=== PATIENT | female | born 1995 | race Caucasian/White ===

== ENCOUNTER 2017-08-31 20:55 | Observation (INO) | payer MEDICARE, MEDICAID, SELFPAY ==
[2017-08-31 20:57] VITALS: BP 144/94; PULSE 114; RESP 18; TEMP 36.5; O2SAT 100; BMI 39.1
--- NOTE | 2017-08-31 21:14 | CT_ITS ---
STUDY: CT BRAIN WITHOUT CONTRAST REASON FOR EXAM: Female, 21 years old. Seizure. RADIATION DOSAGE (If Supplied By Facility): CTDIvol = ( 44.99 ) mGy, DLP = ( 745.49 ) mGycm TECHNIQUE: Transaxial CT imaging of the brain was performed without administration of intravenous contrast material. Individualized dose optimization techniques were used for this CT. COMPARISON: None. FINDINGS: There is no acute bleed or infarct. There are normal white matter tracts. The ventricles are normal in configuration. There is no hydrocephalus. The visualized paranasal sinuses are clear. The mastoid air cells are well aerated. There is no skull fracture. CT/Brain/Head without Contrast IMPRESSION: No acute intracranial abnormality. Electronically Signed: Bob Delatorre, at 21:55 EDT Tel , Service support ,
--- NOTE | 2017-08-31 21:14 | EKG12_ITS ---
Test Reason : SEIZURES Blood Pressure : / mmHG Vent. Rate : 111 BPM Atrial Rate : 111 BPM P-R Int : 144 ms QRS Dur : 088 ms QT Int : 352 ms P-R-T Axes : 031 -08 022 degrees QTc Int : 478 ms Sinus tachycardia Low voltage QRS Nonspecific T wave abnormality Abnormal ECG Confirmed by DAISY AGUIRRE, ORVILLE ([id number]), multimedia editor ISABELLA CEBALLOS ([id number]) on 09/06/2017 3:13:10 PM Referred By: DEREK Confirmed By:ORVILLE VILLA MD
--- NOTE | 2017-08-31 21:16 | NURSING ---
SEIZURE TYPE ACTIVITY NOTED WITH STARRING AND UNRESPONSIVENESS ALONG WITH COUGHING. DR. REED NOTED THIS WHILE HE WAS IN THE ROOM.
[2017-08-31 21:17] VITALS: BP 127/79; PULSE 103; RESP 18; O2SAT 95
--- NOTE | 2017-08-31 21:19 | ED.DCSUM_ITS ---
- ER Visit Summary Date of Service: 08/31/17 Chief Complaint: Seizure History of Present Illness: The patient is a 21 F autism and asthma. The last 2 weeks patient's had more frequent and increasing episodes of where she stares off the distance does not respond and they resolve. Consistent with absence seizure's. No recent head trauma. No history of seizure disorder in this patient or in family members. Physical Examination: Well-appearing young female. Vital signs are stable afebrile. Also exam percent room air no signs of hypoxia. H EENT exam pupils round reactive light. Extra motions intact. No facial droop. Neck nontender no lymphadenopathy. Lungs clear to auscultation bilaterally. Heart regular rhythm rate about 110-115 no murmur. Abdomen soft nontender. Moving all 4 extremities. Neurovascular intact. Neurologically patient intermittently during my exam does go into what appears to be absence seizure's. She will stare off in the distance or her eyes will roll up in her head. There is no tonic-clonic activity. During these events she is nonresponsive. She is breathing. Her vital signs and pulse remained stable. They last 10-20 seconds and then typically resolve. Test Results: See normal. BMP normal. EKG sinus tach rate 111 no acute abnormality. The brain without contrast read by the radiologist and reviewed by me shows no acute abnormality. Emergency Department Course and Treatment: She appears to have new onset seizure disorder. Appears to be absence seizure's. She will obtain CT of her brain for screening labs. Treatment Plan: He was treated with IV Ativan for seizure activity is seen to improve and potentially resolve currently. I spoke to the hospitalist and neurologist and we will admit her for further evaluation and neurologic testing. Disposition: Admission Impression: New onset seizure disorder History of autism This note was generated with [employer] dictation software. It may contain incorrect words, spelling, and punctuation that were not noted in review of the chart prior to signing ED Disposition - Plan for ED Patient: Chief Complaint: Seizure Referrals: Nabil Fontaine MD [Primary Care Provider] -
[2017-08-31] MEDS: LORazepam 2 MG/ML Syringe 1 MG IV (21:30)
[2017-08-31 21:49] LABS: Absolute Lymphocyte Count 3.02 X10^3/ul (0.83-4.51); Absolute Neutrophil Count 3.7 X10^3/uL (2.0-7.7); Basophil# 0.01 X10^3/uL; Basophil% 0.1 % (0-1); Eosinophil# 0.15 X10^3/uL; Eosinophils% 2.1 % (0-5); Hematocrit 43.3 % (37-47); Hemoglobin 14.8 g/dl (12.0-15.0); Lymphocyte # 3.02 X10^3/ul (4.0); Lymphocyte % 41.3 % (19-41); Mean Corp Hgb Conc 34.2 g/gl (32-36); Mean Corpuscular Hgb 30.4 pg (27.0-32.0); Mean Corpuscular Volume 88.9 fL (81-99); Mean Platelet Vol. 9.3 fl (6.2-12.0); Monocyte# 0.47 X10^3/uL; Monocyte% 6.4 % (0-10); Neutrophil # 3.65 X10^3/uL (2.7-7.7); POSITIVE COUNT NO; POSITIVE DIFFERENTIAL NO; POSITIVE MORPHOLOGY NO; Platelet Count 228 K/mm3 (150-450); RBC Distribution Width CV 13.1 % (11.6-14.6); RBC Distribution Width SD 42.8 fl (35.1-43.9); Red Blood Count 4.87 M/mm3 (4.2-5.4); White Blood Count 7.3 K/mm3 (4.4-11.0)
[2017-08-31 22:04] LABS: Anion Gap 7 (5-15); BUN 13 mg/dL (7-18); BUN/Creat Ratio 15.7 RATIO (10-20); Calcium,Total 8.3 mg/dL (8.5-10.1); Chloride 108 mmol/L (98-107); Creatinine, Serum 0.83 mg/dL (0.55-1.02); EST Glomerular Filtration Rate 91 mL/min (>60); Est Glom Filt Rate - Afr Amer 111 mL/min (>60); Estimated Creatinine Clearance 103.39 ml/min; Glucose 86 mg/dL (74-106); Potassium 3.7 mmol/L (3.5-5.1); Sodium Level 139 mmol/L (136-145)
[2017-08-31 22:39] VITALS: BP 119/77; PULSE 109; RESP 18; TEMP 36.6; O2SAT 98
--- NOTE | 2017-08-31 22:46 | HP.PCM_ITS ---
Problem List (1) New onset seizure activity Status: Acute History of Present Illness Date of Admission: 08/31/17 Chief Complaint: New onset seizure activity The patient is a 21 year old F was brought to the emergency room at [facility] by her parents due to episodes today where the patient stared off in space and did not respond to verbal stimuli, this was accompanied by her eyes rolling back in her head according to her mother. Patient has autism, review of systems was not able be obtained from the patient due to her autism. When examined in the emergency room, patient had an episode that was witnessed by the emergency room physician. Patient was given IV Ativan in the emergency room by the emergency room physician, workup was obtained which included a CT of the brain which did not show any abnormality and labs which were unremarkable. She will be admitted for new onset seizures believed to be absence seizures, she will be seen in consultation by neurology and have an EEG performed. 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 Lives: With Family Smoking Status: Never smoker Tobacco Use: Non-smoker Alcohol: None Drugs: None - *Family History Maternal History Items: Hypertension Paternal History Items: No pertinent history Review of Systems Comment: Review of systems was unobtainable due to patient's autism VTE Information - Inpt Only VTE Present on Admission: No VTE Mechan Device Prophylaxis: None VTE Pharm Prophylaxis ordered?: No Reason prophylaxis not ordered:: Treatment Not Indicated - low risk for VTE Patient Problems: Active and Suspected Problems New onset seizure activity (Acute) - Physical Exam General: Alert, No apparent distress, Well developed, Well nourished HEENT: Atraumatic, PERRLA, EOMI, Normocephalic Oral: Moist Mucosa Neck: Supple, No JVD, Negative Carotid Bruits, No Nuchal Rigidity, Trachea Midline, Thyroid Normal Size and Texture Lungs: Clear to auscultation, Normal air movement, No rhonchi, No wheeze, No rales Cardiovascular: Regular rate, Regular Rhythm, Normal S1, Normal S2, No murmurs, No Ectopic Activity, PMI Normal, No rub noted, No Gallop Abdomen: Bowel Sounds Present, Soft, Non Tender, Non-Distended, Obese, No hernias noted Extremities: No clubbing, No cyanosis, No edema, Capillary Refill Less than 3 Seconds Skin: No rashes, No breakdown Musculoskeletal: No Tenderness to Palpation of Joints or Extremities Neurological: Cranial nerves II-XII grossly intact, Neuro grossly intact Psych/Mental Status: Flat Affect, - - Patient does not reply when spoken to at times, she is alert Vital Signs Temp Pulse Resp BP Pulse Ox 97.9 F 109 H 18 119/77 98 08/31/17 22:39 08/31/17 22:39 08/31/17 22:39 08/31/17 22:39 08/31/17 22:39 Oxygen Delivery Method Room Air Weight: 113.398 kg Body Mass Index (BMI) 39.1 Laboratory Tests Past 24 Hrs 08/31/17 08/31/17 21:28 21:28 WBC 7.3 RBC 4.87 Hgb 14.8 Hct 43.3 MCV 88.9 MCH 30.4 MCHC 34.2 RDW 13.1 RDW Differential 42.8 Plt Count 228 MPV 9.3 Immature Gran % (Auto) 0.100 Neut % (Auto) 50.0 Lymph % (Auto) 41.3 H Frederick % (Auto) 6.4 Eos % (Auto) 2.1 Baso % (Auto) 0.1 Absolute Neuts (auto) 3.7 Absolute Lymphs (auto) 3.02 Total Counted Not Reportable Sodium 139 Potassium 3.7 Chloride 108 H Carbon Dioxide 24.0 Anion Gap 7 BUN 13 Creatinine 0.83 Estim Creat Clear Calc 103.39 Est GFR (MDRD) Af Amer 111 Est GFR (MDRD) Non-Af 91 BUN/Creatinine Ratio 15.7 Glucose 86 Calcium 8.3 L Assessment/Plan Active and Suspected Problems New onset seizure activity (Acute) #1 new onset seizure activity-probably absence seizures-patient will be admitted to PCU, neurology will see the patient, she will have an EEG performed #2 autism-complicates care #3 history of asthma Code Visit Inpatient E&M: 10726 Init Hosp L3
[2017-08-31 23:48] VITALS: BP 140/86; PULSE 115; RESP 16; TEMP 36.7; O2SAT 100; BMI 39.2
[2017-08-31 23:50] VITALS: BP 115/64
[2017-09-01] VITALS (7 sets, daily range): BP systolic 128–137; BP diastolic 61–84; PULSE 100–115; RESP 16–20; TEMP 36.9; O2SAT 94–95
--- NOTE | 2017-09-01 07:46 | PCM.PROGNOTE ---
Patient Problems: Active and Suspected Problems New onset seizure activity (Acute) Subjective: Chief complaint: Follow-up after admission for new onset seizure. Patient seen and examined. No acute events overnight. Patient is autistic and not able to provide any history. Mother was at the bedside and she stated that she had no more seizure since admission. Her vital signs are stable. - Physical Exam General: Alert, Cooperative, No apparent distress HEENT: Atraumatic, PERRLA, EOMI Oral: Moist Mucosa, No Gingival or Mucosal Lesions/ Ulcerations Neck: Supple, No JVD, Negative Carotid Bruits, Trachea Midline, Thyroid Normal Size and Texture Lungs: Clear to auscultation, No rhonchi, No wheeze, No rales, Diminished Cardiovascular: Regular rate, Regular Rhythm, Normal S1, Normal S2, PMI Normal Abdomen: Bowel Sounds Present, Soft, Non Tender, Non-Distended, No Hepato-splenomegaly Extremities: No clubbing, No cyanosis, No edema Skin: No rashes, No breakdown Neurological: Cranial nerves II-XII grossly intact, Neuro grossly intact, Motor Exam 5/5 strength throughout Psych/Mental Status: Normal Affect Vital Signs Temp Pulse Resp BP Pulse Ox 98.4 F 111 H 16 134/61 H 94 09/01/17 05:40 09/01/17 06:59 09/01/17 05:40 09/01/17 05:40 09/01/17 05:40 Oxygen Delivery Method Room Air Weight: 257 lb 15.053 oz Intake and Output for Last 24 Hours 08/30/17 08/31/17 09/01/17 23:59 23:59 23:59 Intake Total 0 / 0 Output Total 0 / 0 Balance 0 / 0 Medical Necessity - Tobacco Use Smoking Status: Never smoker Tobacco Use: Non-smoker Assessment/Plan Active and Suspected Problems New onset seizure activity (Acute) This is a 21 years old female patient presented to the medicine because of seizure and she was admitted for evaluation. #1 new onset seizure: Patient never had a history of seizure, no family history of seizure. Apparently, it was an absence seizure. CT scan brain without acute findings. Routine blood work was unremarkable. Vital signs are stable. At this time, she is not on any seizure medication. EEG ordered, neurology consulted. #2 autism: Continue home medications. #3 asthma: Stable, maintaining pulse ox on room air. #4 DVT prophylaxis: Low risk patient, no prophylaxis indicated. This note was generated with [employer] software. It may contain incorrect words, spelling, and punctuation that were not noted in checking the note before signing.
--- NOTE | 2017-09-01 07:51 | PN_ITS ---
Patient Problems: Active and Suspected Problems New onset seizure activity (Acute) Subjective: Chief complaint: Follow-up after admission for new onset seizure. Patient seen and examined. No acute events overnight. Patient is autistic and not able to provide any history. Mother was at the bedside and she stated that she had no more seizure since admission. Her vital signs are stable. - Physical Exam General: Alert, Cooperative, No apparent distress HEENT: Atraumatic, PERRLA, EOMI Oral: Moist Mucosa, No Gingival or Mucosal Lesions/ Ulcerations Neck: Supple, No JVD, Negative Carotid Bruits, Trachea Midline, Thyroid Normal Size and Texture Lungs: Clear to auscultation, No rhonchi, No wheeze, No rales, Diminished Cardiovascular: Regular rate, Regular Rhythm, Normal S1, Normal S2, PMI Normal Abdomen: Bowel Sounds Present, Soft, Non Tender, Non-Distended, No Hepato- splenomegaly Extremities: No clubbing, No cyanosis, No edema Skin: No rashes, No breakdown Neurological: Cranial nerves II-XII grossly intact, Neuro grossly intact, Motor Exam 5/5 strength throughout Psych/Mental Status: Normal Affect Vital Signs Temp Pulse Resp BP Pulse Ox 98.4 F 111 H 16 134/61 H 94 09/01/17 05:40 09/01/17 06:59 09/01/17 05:40 09/01/17 05:40 09/01/17 05:40 Oxygen Delivery Method Room Air Weight: 257 lb 15.053 oz Intake and Output for Last 24 Hours 08/30/17 08/31/17 09/01/17 23:59 23:59 23:59 Intake Total 0 / 0 Output Total 0 / 0 Balance 0 / 0 Medical Necessity - Tobacco Use Smoking Status: Never smoker Tobacco Use: Non-smoker Assessment/Plan Active and Suspected Problems New onset seizure activity (Acute) This is a 21 years old female patient presented to the medicine because of seizure and she was admitted for evaluation. #1 new onset seizure: Patient never had a history of seizure, no family history of seizure. Apparently, it was an absence seizure. CT scan brain without acute findings. Routine blood work was unremarkable. Vital signs are stable. At this time, she is not on any seizure medication. EEG ordered, neurology consulted. #2 autism: Continue home medications. #3 asthma: Stable, maintaining pulse ox on room air. #4 DVT prophylaxis: Low risk patient, no prophylaxis indicated. This note was generated with [employer] software. It may contain incorrect words, spelling, and punctuation that were not noted in checking the note before signing.
[2017-09-01 11:22] LABS: CPK Total, Creatine Kinase 109 U/L (26-192)
--- NOTE | 2017-09-01 11:34 | CASEMGMT ---
CM Initial Assessment: Patient's mother, Starr Roman, is present for interview questions. Home: Patient lives in a 2 story home with her mother, father, brother and aunt. HHS/Aides: No. However, patient does receive assistance from [place] one day a week. Per mother, this service comes into the home to have one-on-one time with the patient and plays games, etc. DME: Has nebulizer that she uses as needed. Providers: PCP - Nabil Fontaine . Patient's mother states that Windy sees Dr. Bhatti at the counseling center for her meds. Pharmacy: [facility] in [place]. Adv. Directives: None. Patient's mother denies interest in assistance/information at this time. Financial: Patient's mother denies any financial concerns with healthcare needs. DC Plan: Home, with support from family.
--- NOTE | 2017-09-01 11:39 | PCM.DC ---
- Discharge Diagnoses Current Active Problems: Current Active and Chronic Problems New onset seizure activity (Acute) You will use the following diet at home:: Regular Your food should be the consistency of: Regular Discharge Activity: Return to Normal Activity Weight Bearing Status: Weight bearing as tolerated Call your doctor if you observe: Fever of 101 or Higher, Shortness of breath, Dizziness, Fainting spells, Chest pain, Increased palpitations (irregular heartbeat), Uncontrolled pain Additional Instructions: Dose of Strattera decreased down to 25 mg p.o. daily. Allergies/Adverse Reactions: Allergies No Known Allergies Allergy (Verified 08/31/17 20:56) Medications to take at Discharge Lisdexamfetamine Dimesylate [Vyvanse] 70 mg PO DAILY 08/04/14 Melatonin 5 mg PO QHS 08/04/14 l-Norgest/E.estradiol-E.estrad [Seasonique 0.15-0.03-0.01 Tab] 1 each PO DAILY 08/04/14 Atomoxetine HCl [Strattera] 25 mg PO DAILY #0 09/01/17 Bupropion HCl [Bupropion Xl] 300 mg DAILY 09/01/17 Cholecalciferol (Vitamin D3) [Vitamin D3] 1,000 unit PO DAILY 09/01/17 Primary Care Physician: Nabil Fontaine MD [Primary Care Provider] - Please follow up with your Primary Care Physician in: 1-2 week.
--- NOTE | 2017-09-01 12:11 | PCM.CONS.GEN ---
Reason for Consult Date of Consultation: 09/01/17 Reason for Consultation: spells History of Present Illness: The patient is a 21 year old F with history of autism, who 1 month ago increased her dose of Strattera. Since then she has had some intermittent spells and then yesterday had multiple spells causing her to present to the emergency department. Her mom describes eyes rolling back, clenching fists, the spells have resolved spontaneously with no treatment although she did get 1 dose of Ativan in the emergency department. Been no incontinence or tongue biting. The patient is normal today. There have been no other medication changes other than the Strattera. She sees a physician at the [facility] for this and has an appointment next week. Mom denies any new evidence of mood disturbance or stress at home. 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 Lives: With Family Smoking Status: Never smoker Tobacco Use: Non-smoker Alcohol: None Drugs: None - *Family History Maternal History Items: Hypertension Paternal History Items: No pertinent history Review of Systems Constitutional: Denies: Chills, Fever, Weight Change HEENT: Denies: Head Aches, Sinus Congestion, Sinus Drainage Cardiovascular: Denies: Chest Pain, Palpitations Respiratory: Denies: Cough, Shortness of breath at rest, Sputum production Gastrointestinal: Denies: Abdominal Pain, Nausea, Vomiting Genitourinary: Denies: Dysuria Musculoskeletal: Denies: Joint Pain, Joint Tenderness Skin: Denies: Rash, Wounds Neurological: Denies: Numbness, Tingling, Focal weakness Psychiatric: Denies: Anxiety, Depression, Homicidal Ideations, Suicidal Ideations Hematologic/ Lymphatic: Denies: Easy Bruising, Easy Bleeding Patient Problems: Active and Suspected Problems New onset seizure activity (Acute) - Physical Exam General: Alert, Oriented x3, Cooperative HEENT: Atraumatic, PERRLA, EOMI, Normocephalic Neck: Supple, No JVD, Negative Carotid Bruits Lungs: Clear to auscultation, Normal air movement Cardiovascular: Regular rate, No murmurs Abdomen: Bowel Sounds Present, Soft, Non Tender Extremities: No edema, Capillary Refill Less than 3 Seconds Skin: No rashes, No breakdown Musculoskeletal: No Tenderness to Palpation of Joints or Extremities Neurological: Cranial nerves II-XII grossly intact Psych/Mental Status: Normal Affect, Appropriate Vital Signs Temp Pulse Resp BP Pulse Ox 36.9 C 113 H 16 128/76 H 95 09/01/17 09:30 09/01/17 11:29 09/01/17 09:30 09/01/17 09:30 09/01/17 09:30 Oxygen Delivery Method Room Air Weight: 117 kg Intake and Output for Last 24 Hours 08/30/17 08/31/17 09/01/17 23:59 23:59 23:59 Intake Total 0 / 0 Output Total 0 / 0 Balance 0 / 0 Laboratory Tests Past 24 Hrs 09/01/17 10:55 Total Creatine Kinase 109 EEG reviewed, normal Assessment/Plan Active and Suspected Problems New onset seizure activity (Acute) Seizures versus nonepileptic spells. Favor nonepileptic spells due to the semiology of the events, no history of seizures in the past and is otherwise healthy female although the increased dose of her Strattera did coincide with the onset of her symptoms proximally 1 month ago. Discussed with mother who agrees to decrease her dose of Strattera back to 25 mg daily which she was tolerating previously and follow-up with her psychiatrist at the counseling center.
--- NOTE | 2017-09-01 12:14 | CON.PCM_ITS ---
Reason for Consult Date of Consultation: 09/01/17 Reason for Consultation: spells History of Present Illness: The patient is a 21 year old F with history of autism, who 1 month ago increased her dose of Strattera. Since then she has had some intermittent spells and then yesterday had multiple spells causing her to present to the emergency department. Her mom describes eyes rolling back, clenching fists, the spells have resolved spontaneously with no treatment although she did get 1 dose of Ativan in the emergency department. Been no incontinence or tongue biting. The patient is normal today. There have been no other medication changes other than the Strattera. She sees a physician at the [facility] for this and has an appointment next week. Mom denies any new evidence of mood disturbance or stress at home. 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 Lives: With Family Smoking Status: Never smoker Tobacco Use: Non-smoker Alcohol: None Drugs: None - *Family History Maternal History Items: Hypertension Paternal History Items: No pertinent history Review of Systems Constitutional: Denies: Chills, Fever, Weight Change HEENT: Denies: Head Aches, Sinus Congestion, Sinus Drainage Cardiovascular: Denies: Chest Pain, Palpitations Respiratory: Denies: Cough, Shortness of breath at rest, Sputum production Gastrointestinal: Denies: Abdominal Pain, Nausea, Vomiting Genitourinary: Denies: Dysuria Musculoskeletal: Denies: Joint Pain, Joint Tenderness Skin: Denies: Rash, Wounds Neurological: Denies: Numbness, Tingling, Focal weakness Psychiatric: Denies: Anxiety, Depression, Homicidal Ideations, Suicidal Ideations Hematologic/ Lymphatic: Denies: Easy Bruising, Easy Bleeding Patient Problems: Active and Suspected Problems New onset seizure activity (Acute) - Physical Exam General: Alert, Oriented x3, Cooperative HEENT: Atraumatic, PERRLA, EOMI, Normocephalic Neck: Supple, No JVD, Negative Carotid Bruits Lungs: Clear to auscultation, Normal air movement Cardiovascular: Regular rate, No murmurs Abdomen: Bowel Sounds Present, Soft, Non Tender Extremities: No edema, Capillary Refill Less than 3 Seconds Skin: No rashes, No breakdown Musculoskeletal: No Tenderness to Palpation of Joints or Extremities Neurological: Cranial nerves II-XII grossly intact Psych/Mental Status: Normal Affect, Appropriate Vital Signs Temp Pulse Resp BP Pulse Ox 36.9 C 113 H 16 128/76 H 95 09/01/17 09:30 09/01/17 11:29 09/01/17 09:30 09/01/17 09:30 09/01/17 09:30 Oxygen Delivery Method Room Air Weight: 117 kg Intake and Output for Last 24 Hours 08/30/17 08/31/17 09/01/17 23:59 23:59 23:59 Intake Total 0 / 0 Output Total 0 / 0 Balance 0 / 0 Laboratory Tests Past 24 Hrs 09/01/17 10:55 Total Creatine Kinase 109 EEG reviewed, normal Assessment/Plan Active and Suspected Problems New onset seizure activity (Acute) Seizures versus nonepileptic spells. Favor nonepileptic spells due to the semiology of the events, no history of seizures in the past and is otherwise healthy female although the increased dose of her Strattera did coincide with the onset of her symptoms proximally 1 month ago. Discussed with mother who agrees to decrease her dose of Strattera back to 25 mg daily which she was tolerating previously and follow-up with her psychiatrist at the counseling center.
--- NOTE | 2017-09-01 12:15 | EEG ---
- Electroencephalogram Date of service 09/01/17 18 channel echoencephalogram was performed with EKG reference leads, photic stimulation and hyperventilation utilizing the International 10-20 electrode placement protocol on this 21-year-old female with multiple spells yesterday. Background activity is 8 Hz symmetrical in the posterior leads which attenuates with eye opening. Hyperventilation is performed for 3 minutes with good effort with no lateralizing Repliform changes and the post hyperventilatory phase was unremarkable. The patient remained awake throughout the recording without epileptiform or lateralizing changes. Photic stimulation generates a normal symmetric driving response in the posterior leads. EKG rhythm strip recording is normal sinus rhythm throughout the recording. Impression: Normal awake electroencephalogram
--- NOTE | 2017-09-01 14:10 | PCM.DC.SUM ---
Discharge Date and Diagnosis Date of Admission: 08/31/17 Date of Discharge: 09/01/17 - Primary Discharge Diagnosis #1 none epileptic spells, versus new onset seizure. In favor of nonepileptic spells. Hospital Course and Treatment Imaging Results: Clinical Impression(s) from Imaging Studies Brain CT 08/31/17 21:14 IMPRESSION: No acute intracranial abnormality. Electronically Signed: Bob Delatorre, at 21:55 EDT Tel , Service support , Dr. Covarrubias, neurology. Procedures: Electroencephalogram Summary of Care Provided: The patient is a 21 year old F admitted because of questionable seizure. The main complaint was that patient has had episodes of staring in the space no response to verbal stimuli and accompanied by back clearing of her eyes. Initially, there was a concern that she may have absence seizure. CT scan brain showed no acute findings. Her routine blood work was unremarkable. Vital signs were stable. EEG performed and was normal without evidence of epileptic foci. Neurology consulted and stated that this could be due to nonepileptic spells or due to behavioral problems. At this time, seizure is less likely. Neurology recommended to decrease the dose of Strattera down to 25 mg p.o. daily. According to her mother, her symptoms started after dose of Strattera increased recently. Patient discharged home in a stable medical condition, dose of Strattera decreased down to 25 mg p.o. daily, there was no indication to start patient on antiseizure medications, continued on her other home medication without any changes, recommended to follow-up with her psychiatrist and PCP in 1-2 weeks. Discharge Activity: Return to Normal Activity Weight Bearing Status: Weight bearing as tolerated Call your doctor if you observe: Fever of 101 or Higher, Shortness of breath, Dizziness, Fainting spells, Chest pain, Increased palpitations (irregular heartbeat), Uncontrolled pain Home Medications: Medications to take at Discharge Lisdexamfetamine Dimesylate [Vyvanse] 70 mg PO DAILY 08/04/14 Melatonin 5 mg PO QHS 08/04/14 l-Norgest/E.estradiol-E.estrad [Seasonique 0.15-0.03-0.01 Tab] 1 each PO DAILY 08/04/14 Atomoxetine HCl [Strattera] 25 mg PO DAILY #0 09/01/17 Bupropion HCl [Bupropion Xl] 300 mg DAILY 09/01/17 Cholecalciferol (Vitamin D3) [Vitamin D3] 1,000 unit PO DAILY 09/01/17 Primary Care Physician: Nabil Fontaine MD [Primary Care Provider] - Please follow up with your Primary Care Physician in: 1-2 week. Disposition: Home Minutes spent on discharge:: 24 Patient Condition:: Stable Medical Necessity - Tobacco Use Smoking Status: Never smoker Tobacco Use: Non-smoker Meaningful Use Info Meaningful Use Diagnoses (Choose all that apply): None applicable Code Visit OBSV E&M: 22113 Observation care discharge
--- NOTE | 2017-09-01 14:15 | DS.PCM_ITS ---
Discharge Date and Diagnosis Date of Admission: 08/31/17 Date of Discharge: 09/01/17 - Primary Discharge Diagnosis #1 none epileptic spells, versus new onset seizure. In favor of nonepileptic spells. Hospital Course and Treatment Imaging Results: Clinical Impression(s) from Imaging Studies Brain CT 08/31/17 21:14 IMPRESSION: No acute intracranial abnormality. Electronically Signed: Bob Delatorre, at 21:55 EDT Tel , Service support , Dr. Covarrubias, neurology. Procedures: Electroencephalogram Summary of Care Provided: The patient is a 21 year old F admitted because of questionable seizure. The main complaint was that patient has had episodes of staring in the space no response to verbal stimuli and accompanied by back clearing of her eyes. Initially, there was a concern that she may have absence seizure. CT scan brain showed no acute findings. Her routine blood work was unremarkable. Vital signs were stable. EEG performed and was normal without evidence of epileptic foci. Neurology consulted and stated that this could be due to nonepileptic spells or due to behavioral problems. At this time, seizure is less likely. Neurology recommended to decrease the dose of Strattera down to 25 mg p.o. daily. According to her mother, her symptoms started after dose of Strattera increased recently. Patient discharged home in a stable medical condition, dose of Strattera decreased down to 25 mg p.o. daily, there was no indication to start patient on antiseizure medications, continued on her other home medication without any changes, recommended to follow-up with her psychiatrist and PCP in 1-2 weeks. Discharge Activity: Return to Normal Activity Weight Bearing Status: Weight bearing as tolerated Call your doctor if you observe: Fever of 101 or Higher, Shortness of breath, Dizziness, Fainting spells, Chest pain, Increased palpitations (irregular heartbeat), Uncontrolled pain Home Medications: Medications to take at Discharge Lisdexamfetamine Dimesylate [Vyvanse] 70 mg PO DAILY 08/04/14 Melatonin 5 mg PO QHS 08/04/14 l-Norgest/E.estradiol-E.estrad [Seasonique 0.15-0.03-0.01 Tab] 1 each PO DAILY 08/04/14 Atomoxetine HCl [Strattera] 25 mg PO DAILY #0 09/01/17 Bupropion HCl [Bupropion Xl] 300 mg DAILY 09/01/17 Cholecalciferol (Vitamin D3) [Vitamin D3] 1,000 unit PO DAILY 09/01/17 Primary Care Physician: Nabil Fontaine MD [Primary Care Provider] - Please follow up with your Primary Care Physician in: 1-2 week. Disposition: Home Minutes spent on discharge:: 24 Patient Condition:: Stable Medical Necessity - Tobacco Use Smoking Status: Never smoker Tobacco Use: Non-smoker Meaningful Use Info Meaningful Use Diagnoses (Choose all that apply): None applicable Code Visit OBSV E&M: 01235 Observation care discharge
== END 2017-09-01 11:40 | disposition home or self-care (01) ==
LOC: ED 22:15 → PCU 23:14
PROVIDERS: Psychiatry & Neurology Neurology; Admitting Provider Internal Medicine; Emergency Provider Emergency Medicine; Family Provider Family Medicine; PCP Family Medicine; Visit Provider Hospitalist
DX: R56.9 Unspecified convulsions (principal); F84.0 Autistic disorder; J45.909 Unspecified asthma, uncomplicated
CPT/HCPCS: 36415; 70450; 80048; 82550; 85025; 93005; 95819; 96374; 99218; 99284; A4216; G0378

== ENCOUNTER → 2019-01-09 07:27 | Outpatient (CLI) | payer MEDICARE, MEDICAID, SELFPAY ==
[2019-01-09 10:42] LABS: Absolute Lymphocyte Count 1.74 X10^3/uL (0.83-4.51); Absolute Neutrophil Count 3.7 X10^3/uL (2.0-7.7); Basophil# 0.01 X10^3/uL; Basophil% 0.2 % (0-1); Eosinophil# 0.13 X10^3/uL; Eosinophils% 2.2 % (0-5); Hematocrit 46.3 % (37-47); Hemoglobin 15.6 g/dL (12.0-15.0); Lymphocyte # 1.74 X10^3/ul (4.0); Lymphocyte % 29.2 % (19-41); Mean Corp Hgb Conc 33.7 g/dL (32-36); Mean Platelet Vol. 9.8 fl (6.2-12.0); Monocyte# 0.42 X10^3/uL; NRBC Flagged by Analyzer 0 % (0-5); Neutrophil # 3.65 X10^3/uL (2.7-7.7); Neutrophil % 61.2 % (47-70); Platelet Count 237 K/mm3 (150-450); RBC Distribution Width CV 12.8 % (11.6-14.6); RBC Distribution Width SD 41.7 fl (35.1-43.9)
[2019-01-09 11:05] LABS: ALB/GLOB Ratio 0.8 RATIO (0.9-2.4); AST(SGOT) 18 U/L (15-37); Alanine Aminotransfer ALT/SGPT 33 U/L (13-56); Albumin, Serum 3.2 g/dL (3.2-5.0); Alkaline Phosphatase 89 U/L (45-117); Anion Gap 9 (5-15); BUN 14 mg/dL (7-18); BUN/Creat Ratio 14.6 RATIO (10-20); Calcium,Total 8.7 mg/dL (8.5-10.1); Chloride 111 mmol/L (98-107); Cholesterol 161 mg/dL (200); Creatinine, Serum 0.96 mg/dL (0.55-1.02); EST Glomerular Filtration Rate 76 mL/min (>60); Est Glom Filt Rate - Afr Amer 92 mL/min (>60); Globulin 3.9 g/dL (2.2-4.2); Glucose 78 mg/dL (74-106); High Density Lipoprotein 47 mg/dL; Protein, Total 7.1 g/dL (6.4-8.2); Sodium Level 142 mmol/L (136-145); T4 Free Direct 1.01 ng/dL (0.76-1.46); Thyroid Stim Hormone (TSH) 2.42 uIU/mL (0.358-3.74); Triglycerides 108 mg/dL; Very Low Density Lipoprotein 22 mg/dL (5-40)
== END ==
PROVIDERS: Family Provider Family Medicine; PCP Family Medicine; Referring Provider Family Medicine; Visit Provider Family Medicine
DX: R53.83 Other fatigue (principal); E66.9 Obesity, unspecified; Z51.81 Encounter for therapeutic drug level monitoring; Z83.3 Family history of diabetes mellitus
CPT/HCPCS: 36415; 80053; 80061; 84439; 84443; 85025

== ENCOUNTER → 2019-07-24 16:24 | Outpatient (CLI) | payer MEDICARE, MEDICAID, SELFPAY ==
[2019-04-05 13:41] VITALS: BMI 38.0
--- NOTE | 2019-07-24 16:30 | RAD_ITS ---
STUDY: X-RAY CHEST REASON FOR EXAM: Female, 23 years old. COUGH TECHNIQUE: Frontal and lateral views of the chest. COMPARISON: 08/04/2014. FINDINGS: The lungs are clear and expanded. There is no demonstrated pleural abnormality. Normal size heart. Normal mediastinum and yoseph. Normal visualized pulmonary arteries. Normal visualized aortic arch and descending thoracic aorta. Normal visualized thoracic spine. Normal visualized ribs, clavicles, and shoulders. There is no demonstrated abnormality of the visualized soft tissue structures of the upper abdomen. RAD/Chest PA and Lateral IMPRESSION: Normal x-ray examination of the chest. Electronically Signed: Rosales Jones MD at 20:12 EDT , Service support ,
== END ==
PROVIDERS: PCP Family Medicine; Referring Provider Family Medicine; Visit Provider Family Medicine
DX: J45.901 Unspecified asthma with (acute) exacerbation (principal)
CPT/HCPCS: 71046

== ENCOUNTER → 2019-12-11 | Outpatient (CLI) | payer MEDICARE, MEDICAID, SELFPAY ==
[2019-10-31 10:31] VITALS: BMI 39.6
== END | disposition home or self-care (01) ==
LOC: LABSPEC 09:26
PROVIDERS: PCP Family Medicine; Referring Provider Nurse Practitioner Acute Care; Visit Provider Nurse Practitioner Acute Care
DX: U07.1 COVID-19 (principal); J45.909 Unspecified asthma, uncomplicated
CPT/HCPCS: 87635; 94799; U0003

== ENCOUNTER → 2020-10-16 13:07 | Outpatient (CLI) | payer MEDICARE, MEDICAID, SELFPAY ==
[2020-10-16 07:51] VITALS: BMI 42.4
== END ==
PROVIDERS: PCP Family Medicine; Referring Provider Nurse Practitioner Acute Care; Visit Provider Nurse Practitioner Acute Care
DX: U07.1 COVID-19 (principal); R05 Cough
CPT/HCPCS: 36415; 86769

== ENCOUNTER → 2024-01-06 | Outpatient (CLI) | payer MEDICARE, MEDICAID, SELFPAY ==
[2024-01-06 10:31] LABS: Absolute Lymphocyte Count 1.78 X10^3/uL (0.83-4.51); Absolute Neutrophil Count 4.1 X10^3/uL (2.0-7.7); Basophil# 0.02 X10^3/uL; Basophil% 0.3 % (0-1); Eosinophil# 0.08 X10^3/uL; Eosinophils% 1.3 % (0-5); Hematocrit 43.3 % (37-47); Hemoglobin 14.1 g/dL (12.0-15.0); Lymphocyte # 1.78 X10^3/ul (0.83-4.51); Lymphocyte % 27.9 % (19-41); Mean Corp Hgb Conc 32.6 g/dL (32-36); Mean Corpuscular Hgb 29.1 pg (27.0-32.0); Mean Corpuscular Volume 89.5 fL (81-99); Mean Platelet Vol. 9.8 fl (6.2-12.0); Monocyte# 0.39 X10^3/uL; Monocyte% 6.1 % (0-10); NRBC Flagged by Analyzer 0 % (0-5); Neutrophil # 4.11 X10^3/uL (2.7-7.7); Neutrophil % 64.2 % (47-70); Platelet Count 248 K/mm3 (150-450); RBC Distribution Width CV 12.7 % (11.6-14.6); RBC Distribution Width SD 41.6 fl (35.1-43.9); Red Blood Count 4.84 M/mm3 (4.2-5.4); White Blood Count 6.4 K/mm3 (4.4-11.0)
[2024-01-06 10:48] LABS: Vitamin D,25 Hydroxy 16.5 ng/mL
[2024-01-06 10:54] LABS: ALB/GLOB Ratio 0.9 RATIO (0.9-2.4); AST(SGOT) 19 U/L (15-37); Alanine Aminotransfer ALT/SGPT 25 U/L (13-56); Albumin, Serum 3.2 g/dL (3.2-5.0); Alkaline Phosphatase 85 U/L (45-117); Anion Gap 8 (5-15); BUN 12 mg/dL (7-18); BUN/Creat Ratio 12.4 RATIO (10-20); Calcium,Total 8.6 mg/dL (8.5-10.1); Chloride 110 mmol/L (98-107); Cholesterol 181 mg/dL (200); Creatinine, Serum 0.96 mg/dL (0.55-1.02); EST Glomerular Filtration Rate 73 mL/min (>60); Est Glom Filt Rate - Afr Amer 88 mL/min (>60); Globulin 3.7 g/dL (2.2-4.2); Glucose 92 mg/dL (74-106); High Density Lipoprotein 48 mg/dL; Potassium 3.9 mmol/L (3.5-5.1); Protein, Total 6.9 g/dL (6.4-8.2); Sodium Level 140 mmol/L (136-145); Triglycerides 99 mg/dL; Very Low Density Lipoprotein 20 mg/dL (5-40)
== END | disposition home or self-care (01) ==
LOC: MFPLAB 08:39
PROVIDERS: PCP Family Medicine; Visit Provider Family Medicine
DX: E66.9 Obesity, unspecified (principal); Z13.220 Encounter for screening for lipoid disorders; Z13.1 Encounter for screening for diabetes mellitus
CPT/HCPCS: 36415; 80053; 80061; 82306; 84443; 85025

== ENCOUNTER 2024-07-08 22:26 | Emergency (ER) | payer MEDICAID, MEDICARE, SELFPAY ==
[2024-07-08 22:27] VITALS: BP 133/89; PULSE 116; RESP 20; TEMP 36.7; O2SAT 96; BMI 36.8
[2024-07-08 22:28] VITALS: BP 133/89; PULSE 116; RESP 20; TEMP 36.7; O2SAT 96
[2024-07-08] MEDS: predniSONE 20 MG Tablet 60 MG PO (23:20)
[2024-07-08 23:28] VITALS: BP 135/85; PULSE 91; RESP 18; TEMP 36.8; O2SAT 98
--- NOTE | 2024-07-08 23:35 | RAD_ITS ---
PROCEDURE: CHEST PA AND LATERAL REASON FOR EXAM: Cough, wheeze TECHNIQUE: Frontal and lateral views of the chest. COMPARISON: 07/24/2019 FINDINGS: The cardiac and mediastinal contours are within limits . Pulmonary vascularity appears within limits. No pleural effusion. The lungs are clear. Mild S shaped curvature RAD/Chest PA and Lateral IMPRESSION: No evidence of acute disease Reading Location: [id number]
--- NOTE | 2024-07-08 23:38 | EDS_ITS ---
HPI History of Present Illness Chief Complaint: Cough Informant: patient and parent Narrative Narrative: History of autism and asthma presents with mother 3-day history increasing cough. States wheezing started yesterday. Today in the car posttussis emesis with heavy cough. No fevers no myalgias. Chronic sweats. Using nebulizer. No vomiting or diarrhea. No urinary symptoms. Denies any sick contacts. [facility] Medical History Bronchitis Asthma New onset seizure activity Home Medications ?Medication ?Instructions ?Recorded ?Last Taken ?Type L norgest/E estradiol-E estrad 1 ea PO DAILY 08/04/14 Unknown History 0.15 mg-30 mcg (84)/10 mcg(7) tabs,3mos melatonin 5 mg tablet 5 mg PO QHS 08/04/14 Unknown History bupropion HCl 300 mg 24 hr tablet, 300 mg PO DAILY Dep ression 09/01/17 Unknown History extended release nebulizer supplies #1 ea 01/07/20 Unknown Rx Nebulizer #1 ea 01/13/21 Unknown Rx lisdexamfetamine 60 mg capsule 60 mg PO DAILY 10/14/21 Unknown History sertraline 100 mg tablet 100 mg PO DAILY 10/14/21 Unk nown History omeprazole 40 mg capsule,delayed 40 mg PO DAILY #30 ca ps 10/14/22 Unknown Rx release fluticasone propionate 50 1 spray intranasal Q12H #18. 2 mL 11/09/23 Unknown Rx mcg/actuation nasal spray,suspension albuterol sulfate 2.5 mg/3 mL 2.5 mg (3 mL) inhalation Q4H PRN 02/03/24 Unknown Rx (0.083 %) solution for nebulization Sob &/Or Wheezing #180 mL budesonide 0.5 mg/2 mL suspension 0.5 mg (2 mL) inhala tion BID #120 03/08/24 Unknown Rx for nebulization mL loratadine 10 mg tablet 10 mg PO DAILY #90 tabs 02/14 09/06 Unknown Rx ergocalciferol (vitamin D2) 1,250 1,250 mcg PO QWEEK 0 07/08/24 Unknown History mcg (50,000 unit) capsule ondansetron 4 mg disintegrating 4 mg PO Q8H PRN PRN Na usea #10 tabs 07/09/24 Unknown Rx tablet prednisone 20 mg tablet 60 mg (3 x 20 mg) PO DAILY # 12 07/09/24 Unknown Rx TABLETS Allergy/AdvReac Type Severity Reaction Status Date / Time No Known Allergies Allergy Verified 07/08/24 22:27 Family History Other Cancer Hypertension Surgical History History of placement of ear tubes Social History Smoking Status: Never smoker ROS ROS ED Constitutional Constitutional ED: Reports sweats; Denies chills or fever(s) ENT ENT ED: Denies sore throat Cardiovascular Cardiovascular: Denies chest pain, leg edema, palpitations or racing heartbeat Respiratory/Chest Respiratory/Chest: Reports cough and dyspnea; Denies dyspnea on exertion Gastrointestinal Gastrointestinal: Denies abdominal pain, diarrhea, nausea or vomiting Genitourinary Genitourinary ED: Denies dysuria, hematuria or urinary frequency Musculoskeletal Musculoskeletal: Denies back pain, extremity pain or neck pain Integumentary Denies rash or wounds Neurologic Neurologic: Denies headache(s), paresthesias or weakness EXAM Physical Exam Const Vital Signs: 07/09/24 00:28 07/09/24 00:56 Temperature 98.2 F 98.0 F Temperature Source Oral Pulse Rate 85 99 Respiratory Rate 18 18 Blood Pressure 137/87 H 137/87 H Blood Pressure Mean 103 103 Pulse Ox 97 95 Oxygen Delivery Method Room Air Positive well nourished and well developed General Appearance ED: well developed and NAD HEENT Reports moist mucous membranes normocephalic and atraumatic Eyes General Eye ED: Yes normal appearance of both eyes Neck full ROM Chest Wall Chest: Negative for tenderness Resp normal respiratory effort and normal air movement Effort and Inspection: symmetric chest movement; Negative for respiratory distress Cardio regular rhythm and no murmurs Rate: tachycardic Peripheral Pulses: pulses 2+ throughout GI normal to inspection, nondistended, normoactive bowel sounds and non-tender Palpation: Negative for guarding or rebound tenderness present Extremity normal to inspection General Extremety ED: Negative for edema or tenderness General Extremity: Negative for edema Neuro oriented x3 and no sensory deficits noted Sensorium / Orientation: awake and alert Skin no rashes or lesions noted and no wounds MDM MDM MDM Narrative Medical decision making narrative: Interventions / MDM: Differential diagnosis: Asthma exacerbation, viral syndrome, RSV Diagnosis considered but do not suspect: pneumonia however x-ray negative. My EKG interpretation: N/A Imaging independently reviewed and interpreted by myself: 2 view chest x-ray: No acute process also read by radiology. External documents reviewed: N/A Test considered but not ordered:N/A ED course: Tachycardia afebrile status post aerosol treatments at home. No hypoxia no active wheezing. Will start steroids with asthma history. Two-view chest x-ray ordered. COVID flu and RSV sent.. Results positive for RSV. X-ray negative for pneumonia. Clinically feeling better on reevaluation. She is continued on steroids. Will continue aerosol treatments at home. Outpatient follow-up. All questions were answered. Re-evaluation: stable Disposition discussed with patient/family/significant other: Patient and mother Case discussed with consulting clinician: N/A This note was generated with [employer] dictation software. It may contain incorrect words, spelling, and punctuation that were not noted in checking the note before signing. Radiography Diagnostic Testing: Clinical Impression(s) from Imaging Studies Chest X-Ray 07/08/24 23:35 IMPRESSION: No evidence of acute disease Reading Location: [facility] Discharge Plan Triage Chief Complaint: Cough ED Provider: Star Navarrete Dx/Rx/DC Orders Clinical Impression: Asthma exacerbation, URI (upper respiratory infection), Autism spectrum disorder, RSV infection Instructions: RSV (Respiratory Syncytial Virus), ED URI, Viral, No Abx (Adult), Asthma Prescriptions: New prednisone 20 mg tablet 60 mg PO DAILY Qty: 12 0RF ondansetron 4 mg tablet,disintegrating 4 mg PO Q8H PRN PRN (Reason: Nausea) Qty: 10 0RF No Action sertraline 100 mg tablet 100 mg PO DAILY Vyvanse 60 mg capsule 60 mg PO DAILY Patient Comments: TAKE 1 CAPSULE BY MOUTH ONCE DAILY IN THE MORNING omeprazole 40 mg capsule,delayed release(DR/EC) 40 mg PO DAILY Qty: 30 3RF loratadine 10 mg tablet 10 mg PO DAILY Qty: 90 3RF budesonide 0.5 mg/2 mL suspension for nebulization 0.5 mg INHALATION BID Qty: 120 6RF L norgest/e.estradiol-e.estrad 1 EACH tablets,dose pack,3 month 1 ea PO DAILY melatonin 5 MG tablet 5 mg PO QHS bupropion HCl 300 MG tablet extended release 24 hr 300 mg PO DAILY ergocalciferol (vitamin D2) 1,250 mcg (50,000 unit) capsule 1,250 mcg PO QWEEK (DME) nebulizer supplies Qty: 1 11RF Rx Instructions: As directed (DME) Nebulizer See Rx Instructions .ROUTE .MEDSUPPLY Qty: 1 0RF Rx Instructions: As directed fluticasone propionate 50 mcg/actuation spray,suspension 1 spray INTRANASAL Q12H Qty: 18.2 11RF Rx Instructions: administer into each nostril albuterol sulfate 2.5 mg /3 mL (0.083 %) solution for nebulization 2.5 mg inhalation Q4H PRN (Reason: Sob &/Or Wheezing) Qty: 180 6RF Primary Care Provider: Devi Steven Referrals: Devi Steven MD [Primary Care Provider] - 1 Week Activity Restrictions/Additional Instructions: Chest x-ray negative. Nasal swabs negative for COVID or influenza. Positive for RSV. Continue aerosol treatments take and finish steroids as prescribed. Use nausea medicine as needed. Follow-up with your doctor. Print Language: Yi Disposition Disposition: Home, Self Care Discharge Date/Time: 07/09/24 00:59
[2024-07-09 00:28] VITALS: BP 137/87; PULSE 85; RESP 18; TEMP 36.8; O2SAT 97
[2024-07-09 00:56] VITALS: BP 137/87; PULSE 99; RESP 18; TEMP 36.7; O2SAT 95
== END 2024-07-09 00:59 | disposition home or self-care (01) ==
PROVIDERS: Emergency Provider Emergency Medicine; PCP Family Medicine; Visit Provider Emergency Medicine
DX: J45.901 Unspecified asthma with (acute) exacerbation (principal); J06.9 Acute upper respiratory infection, unspecified; F84.0 Autistic disorder; B97.4 Respiratory syncytial virus as the cause of diseases classified elsewhere; Z79.51 Long term (current) use of inhaled steroids
CPT/HCPCS: 71046; 87631; 99282

== ENCOUNTER 2024-07-10 19:58 | Emergency (ER) | payer MEDICAID, MEDICARE, SELFPAY ==
[2024-07-10] VITALS (9 sets, daily range): BP systolic 121–152; BP diastolic 75–93; PULSE 115–131; RESP 15–22; TEMP 36.7; O2SAT 92–95; BMI 36.5
--- NOTE | 2024-07-10 20:28 | RAD_ITS ---
PROCEDURE: CHEST PA AND LATERAL REASON FOR EXAM: Cough. TECHNIQUE: Frontal view of the chest. COMPARISON: 07/08/2024. FINDINGS: The cardiac and mediastinal contours are normal. The lungs are clear. RAD/Chest PA and Lateral IMPRESSION: NEGATIVE SINGLE VIEW OF THE CHEST. Reading Location: [place] [id number]
--- NOTE | 2024-07-10 20:29 | EKG12_ITS ---
Test Reason : DYSRHYTHMIA Blood Pressure : */* mmHG Vent. Rate : 120 BPM Atrial Rate : 120 BPM P-R Int : 124 ms QRS Dur : 88 ms QT Int : 316 ms P-R-T Axes : 37 -43 35 degrees QTcB Int : 446 ms Sinus tachycardia Left axis deviation Low voltage QRS Abnormal ECG Confirmed by Dino Negrete ([id number]), communications editor MONE GLASGOW ([id number]) on 07/11/2024 8:24:55 AM Referred By: Confirmed By: Dino Negrete
--- NOTE | 2024-07-10 20:29 | ED.VIS.DYS ---
HPI <AMILCAR Milton - Last Filed: 07/10/24 22:06> History of Present Illness Chief Complaint: Shortness of Breath Narrative Narrative: 28-year-old female with autism and asthma presents with 5 days of cough, wheezing and shortness of breath. She was seen here on 07/08 and tested positive for RSV. She was prescribed prednisone 60 mg daily and is taken 3 doses so far. She is not using her nebulizer every 4 hours. Mom states she does not like to cough so she is not expressing any sputum. She was brought in for evaluation because she is still short of breath. [facility] <AMILCAR Milton - Last Filed: 07/10/24 22:06> [facility] Medical History (Updated 07/10/24 @ 22:45 by Rossana Markham) Autism Bronchitis Asthma New onset seizure activity Home Medications ?Medication ?Instructions ?Recorded ?Last Taken ?Type L norgest/E estradiol-E estrad 1 ea PO DAILY 08/04/14 Unknown History 0.15 mg-30 mcg (84)/10 mcg(7) tabs,3mos melatonin 5 mg tablet 5 mg PO QHS 08/04/14 Unknown History bupropion HCl 300 mg 24 hr tablet, 300 mg PO DAILY Depression 09/01/17 Unknown History extended release nebulizer supplies #1 ea 01/07/20 Unknown Rx Nebulizer #1 ea 01/13/21 Unknown Rx lisdexamfetamine 60 mg capsule 60 mg PO DAILY 10/14/21 Unknown History sertraline 100 mg tablet 100 mg PO DAILY 10/14/21 Unknown History omeprazole 40 mg capsule,delayed 40 mg PO DAILY #30 caps 10/14/22 Unknown Rx release fluticasone propionate 50 1 spray intranasal Q12H #18.2 mL 11/09/23 Unknown Rx mcg/actuation nasal spray,suspension albuterol sulfate 2.5 mg/3 mL 2.5 mg (3 mL) inhalation Q4H PRN 02/03/24 Unknown Rx (0.083 %) solution for nebulization Sob &/Or Wheezing #180 mL budesonide 0.5 mg/2 mL suspension 0.5 mg (2 mL) inhalation BID #120 03/08/24 Unknown Rx for nebulization mL loratadine 10 mg tablet 10 mg PO DAILY #90 tabs 03/08/24 Unknown Rx ergocalciferol (vitamin D2) 1,250 1,250 mcg PO QWEEK 07/08/24 Unknown History mcg (50,000 unit) capsule ondansetron 4 mg disintegrating 4 mg PO Q8H PRN PRN Nausea #10 tabs 07/09/24 Unknown Rx tablet prednisone 20 mg tablet 60 mg (3 x 20 mg) PO DAILY #12 07/09/24 Unknown Rx TABLETS Allergy/AdvReac Type Severity Reaction Status Date / Time No Known Allergies Allergy Verified 07/10/24 19:59 Family History Other Cancer Hypertension Surgical History History of placement of ear tubes Social History Smoking Status: Never smoker ROS <AMILCAR Milton - Last Filed: 07/10/24 22:06> ROS ED ROS Narrative Constitutional: Negative for fever. CVS: Negative for chest pain. Respiratory: Positive for shortness of breath, cough. EXAM <AMILCAR Milton - Last Filed: 07/10/24 22:06> Physical Exam Narrative Exam Narrative: CONST: Patient sitting in no acute distress. Slightly diaphoretic. EYES: Normal inspection. NECK: Normal inspection. RESP: Able to speak without respiratory distress, coarse lung sounds and wheezing throughout. CVS: Tachycardic with regular rhythm, no murmur, no gallop. SKIN: Color normal, no rash, warm, dry, intact. EXTREMITIES: Normal appearance, no pedal edema. NEURO: Alert and answering questions appropriately. PSYCH: Normal affect. Const Vital Signs: 07/10/24 19:59 07/10/24 20:32 07/10/24 20:32 Temperature 98.1 F Temperature Source Oral Pulse Rate 131 H 122 H Respiratory Rate 15 22 H Respiratory Effort Short of Breath Respiratory Pattern Blood Pressure 152/93 H 127/75 H Blood Pressure Mean 112 92 Pulse Ox 92 93 Oxygen Delivery Method Room Air Room Air 07/10/24 20:37 07/10/24 21:00 07/10/24 22:00 Temperature Temperature Source Pulse Rate 117 H 120 H 124 H Respiratory Rate 22 H 18 20 H Respiratory Effort Respiratory Pattern Tachypnea Blood Pressure 121/89 H 138/79 H Blood Pressure Mean 99 98 Pulse Ox 95 93 Oxygen Delivery Method Room Air Room Air 07/10/24 22:01 07/10/24 23:00 Temperature Temperature Source Pulse Rate 115 H 117 H Respiratory Rate 22 H 22 H Respiratory Effort Respiratory Pattern Tachypnea Blood Pressure 136/80 H Blood Pressure Mean 98 Pulse Ox 94 Oxygen Delivery Method Room Air <Dr. Adeola Lyn DO - Last Filed: 07/10/24 23:44> Physical Exam Const Vital Signs: 07/10/24 19:59 07/10/24 20:32 07/10/24 20:32 Temperature 98.1 F Temperature Source Oral Pulse Rate 131 H 122 H Respiratory Rate 15 22 H Respiratory Effort Short of Breath Respiratory Pattern Blood Pressure 152/93 H 127/75 H Blood Pressure Mean 112 92 Pulse Ox 92 93 Oxygen Delivery Method Room Air Room Air 07/10/24 20:37 07/10/24 21:00 07/10/24 22:00 Temperature Temperature Source Pulse Rate 117 H 120 H 124 H Respiratory Rate 22 H 18 20 H Respiratory Effort Respiratory Pattern Tachypnea Blood Pressure 121/89 H 138/79 H Blood Pressure Mean 99 98 Pulse Ox 95 93 Oxygen Delivery Method Room Air Room Air 07/10/24 22:01 07/10/24 23:00 Temperature Temperature Source Pulse Rate 115 H 117 H Respiratory Rate 22 H 22 H Respiratory Effort Respiratory Pattern Tachypnea Blood Pressure 136/80 H Blood Pressure Mean 98 Pulse Ox 94 Oxygen Delivery Method Room Air MDM <AMILCAR Milton - Last Filed: 07/10/24 22:06> [facility] MDM Narrative Medical decision making narrative: History gathered from: Patient and mom Differential includes RSV, asthma exacerbation, pneumonia 28-year-old female with autism and asthma presents with 5-day history of URI symptoms and shortness of breath. Recent positive RSV. On 3 days of steroids and nebulizer treatments without much improvement. BP is 152/93, HR 131, 92% on room air, RR 15. Afebrile. She is able to speak without respiratory distress or retractions but has significant coarse lung sounds and wheezing. I ordered DuoNebs and a chest x-ray to compare to prior visit. Labs show WBC of 12.3. BMP and lactate pending. Lab Data Attestation: I reviewed the patient's lab results. Labs: Laboratory Results - last 24 hr 07/10/24 21:04 WBC 12.3 H RBC 5.00 Hgb 14.8 Hct 44.1 MCV 88.2 MCH 29.6 MCHC 33.6 RDW Std Deviation 41.3 RDW Coeff of Annabel 12.8 Plt Count 252 MPV 9.1 Immature Gran % (Auto) 0.200 Neut % (Auto) 93.7 H Lymph % (Auto) 3.3 L Churchill % (Auto) 2.6 Eos % (Auto) 0.0 Baso % (Auto) 0.2 Absolute Neuts (auto) 11.5 H Absolute Lymphs (auto) 0.40 L Nucleated RBC % 0 Sodium 141 Potassium 4.0 Chloride Direct 108 Carbon Dioxide 18.7 L Anion Gap 14 BUN 15 Creatinine 0.9 Estim Creat Clear Calc 119.23 Est GFR (MDRD) Non-Af 85 BUN/Creatinine Ratio 16.6 Glucose 167 H Lactic Acid 2.7 H* Calcium 9.7 ABG Data ABG results: ABG 07/10/24 22:20 Specimen Type KRISSY Sample Site Not entered VBG pH 7.37 VBG pO2 52 H VBG HCO3 24 VBG Total CO2 25 VBG O2 Sat (Calc) 86 H VBG Base Excess -2 L POC Mix VBG pCO2 Pt Tmp 40.3 L O2 Delivery Device Room Air Radiography Diagnostic Testing: Clinical Impression(s) from Imaging Studies Chest X-Ray 07/10/24 20:28 IMPRESSION: NEGATIVE SINGLE VIEW OF THE CHEST. Reading Location: [place] [address] EKG Initial EKG: Attestation: I personally reviewed and interpreted this EKG as follows: Interpretation: No Acute Injury Pattern and Sinus Tachycardia Comments: Sinus tachycardia at 120 bpm Normal intervals Left axis deviation No acute ischemic changes <Dr. Adeola Lyn, DO - Last Filed: 07/10/24 23:44> MDM MDM Narrative Medical decision making narrative: History gathered from: Patient and mom Differential includes RSV, asthma exacerbation, pneumonia 28-year-old female with autism and asthma presents with 5-day history of URI symptoms and shortness of breath. Recent positive RSV. On 3 days of steroids and nebulizer treatments without much improvement. BP is 152/93, HR 131, 92% on room air, RR 15. Afebrile. She is able to speak without respiratory distress or retractions but has significant coarse lung sounds and wheezing. I ordered DuoNebs and a chest x-ray to compare to prior visit. Labs show WBC of 12.3. BMP and lactate pending. I have personally performed a face to face assessment of the patient and have reviewed the [facility] Note. I performed a substantive portion of the visit including all aspects of the following. My stewart findings include: History is patient is a 28-year-old female with history of asthma, recent diagnosis on RSV (on day 5 of illness) and autism spectrum presenting for persistent cough and worsening respiratory symptoms. Has been using nebulizer treatment at home scheduled with no significant improvement is on day 3 of steroids. Mother is at the bedside. On exam patient appears mildly ill. She was dehydrated. Dry mucosal membranes. Neck is supple no JVD. No stridor. She is a lot of transmitted upper respiratory noises on her lung exam. She does have some expiratory wheezing present. Tachycardic. Abdomen soft nontender. No peripheral edema. Patient is given aerosols in the emergency room. She is given a liter of IV fluids as she appeared dehydrated. On repeat evaluation she does seem improved. Patient does not like to cough per mother and I think is building up secretions which is causing some of her worsening respiratory sounds. Patient's lab work and workup is largely normal. She does have a mildly elevated lactate of 2.7 and a leukocytosis of 12.3 however she has been on steroids for 3 days. Chest x-ray viewed by myself as well as radiology which is negative for any acute process. On repeat evaluation patient clinically is feeling improved. Breathing sounds have cleared up. She still has some transmitted upper respiratory noises. Discussed respiratory and try flutter valve. Patient is ambulated and does not desaturate. VBG is obtained which is largely normal. Discussed admission versus discharge home. At this time patient and mother with no comfortably discharged home. They are given very strict return precautions. They verbalized given understands plan. Patient discharged home in stable and improved condition. Other additions or changes: [None] Lab Data Labs: Laboratory Results - last 24 hr 07/10/24 21:04 WBC 12.3 H RBC 5.00 Hgb 14.8 Hct 44.1 MCV 88.2 MCH 29.6 MCHC 33.6 RDW Std Deviation 41.3 RDW Coeff of Annabel 12.8 Plt Count 252 MPV 9.1 Immature Gran % (Auto) 0.200 Neut % (Auto) 93.7 H Lymph % (Auto) 3.3 L Churchill % (Auto) 2.6 Eos % (Auto) 0.0 Baso % (Auto) 0.2 Absolute Neuts (auto) 11.5 H Absolute Lymphs (auto) 0.40 L Nucleated RBC % 0 Sodium 141 Potassium 4.0 Chloride Direct 108 Carbon Dioxide 18.7 L Anion Gap 14 BUN 15 Creatinine 0.9 Estim Creat Clear Calc 119.23 Est GFR (MDRD) Non-Af 85 BUN/Creatinine Ratio 16.6 Glucose 167 H Lactic Acid 2.7 H* Calcium 9.7 ABG Data ABG results: ABG 07/10/24 22:20 Specimen Type KRISSY Sample Site Not entered VBG pH 7.37 VBG pO2 52 H VBG HCO3 24 VBG Total CO2 25 VBG O2 Sat (Calc) 86 H VBG Base Excess -2 L POC Mix VBG pCO2 Pt Tmp 40.3 L O2 Delivery Device Room Air Radiography Diagnostic Testing: Clinical Impression(s) from Imaging Studies Chest X-Ray 07/10/24 20:28 IMPRESSION: NEGATIVE SINGLE VIEW OF THE CHEST. Reading Location: [place] [address] Discharge Plan Triage Chief Complaint: Shortness of Breath ED Midlevel Provider: Marilynn Mak ED Provider: Adeola Lyn Dx/Rx/DC Orders Clinical Impression: Asthma exacerbation, RSV infection Instructions: ED Asthma, Acute (Adult) Prescriptions: No Action sertraline 100 mg tablet 100 mg PO DAILY Vyvanse 60 mg capsule 60 mg PO DAILY Patient Comments: TAKE 1 CAPSULE BY MOUTH ONCE DAILY IN THE MORNING omeprazole 40 mg capsule,delayed release(DR/EC) 40 mg PO DAILY Qty: 30 3RF loratadine 10 mg tablet 10 mg PO DAILY Qty: 90 3RF budesonide 0.5 mg/2 mL suspension for nebulization 0.5 mg INHALATION BID Qty: 120 6RF L norgest/e.estradiol-e.estrad 1 EACH tablets,dose pack,3 month 1 ea PO DAILY melatonin 5 MG tablet 5 mg PO QHS bupropion HCl 300 MG tablet extended release 24 hr 300 mg PO DAILY ergocalciferol (vitamin D2) 1,250 mcg (50,000 unit) capsule 1,250 mcg PO QWEEK prednisone 20 mg tablet 60 mg PO DAILY Qty: 12 0RF ondansetron 4 mg tablet,disintegrating 4 mg PO Q8H PRN PRN (Reason: Nausea) Qty: 10 0RF (DME) nebulizer supplies Qty: 1 11RF Rx Instructions: As directed (DME) Nebulizer See Rx Instructions .ROUTE .MEDSUPPLY Qty: 1 0RF Rx Instructions: As directed fluticasone propionate 50 mcg/actuation spray,suspension 1 spray INTRANASAL Q12H Qty: 18.2 11RF Rx Instructions: administer into each nostril albuterol sulfate 2.5 mg /3 mL (0.083 %) solution for nebulization 2.5 mg inhalation Q4H PRN (Reason: Sob &/Or Wheezing) Qty: 180 6RF Primary Care Provider: Devi Steven Referrals: Devi Steven MD [Primary Care Provider] - Activity Restrictions/Additional Instructions: Continues breathing treatments and steroids. Push fluids. Please try to cough deeply to clear secretions. Please have a low threshold to return to the emergency room with any worsening symptoms. Print Language: Honduran Disposition Disposition: Home, Self Care
[2024-07-10] MEDS: Ipratropium/Albuterol Sulfate 3 ML AMPUL.NEB INHALATION ×2 (20:37→22:01)
[2024-07-10 21:12] LABS: Absolute Neutrophil Count 11.5 X10^3/uL (2.0-7.7); Basophil# 0.02 X10^3/uL; Basophil% 0.2 % (0-1); Hematocrit 44.1 % (37-47); Hemoglobin 14.8 g/dL (12.0-15.0); Lymphocyte % 3.3 % (19-41); Mean Corp Hgb Conc 33.6 g/dL (32-36); Mean Corpuscular Hgb 29.6 pg (27.0-32.0); Mean Corpuscular Volume 88.2 fL (81-99); Mean Platelet Vol. 9.1 fl (6.2-12.0); Monocyte# 0.32 X10^3/uL; Monocyte% 2.6 % (0-10); NRBC Flagged by Analyzer 0 % (0-5); Neutrophil # 11.53 X10^3/uL (2.7-7.7); Neutrophil % 93.7 % (47-70); POSITIVE DIFFERENTIAL YES; Platelet Count 252 K/mm3 (150-450); RBC Distribution Width CV 12.8 % (11.6-14.6); RBC Distribution Width SD 41.3 fl (35.1-43.9); White Blood Count 12.3 K/mm3 (4.4-11.0)
[2024-07-10] MEDS: 0.9% Normal Saline (1000mL) 1,000 ML 999 ML IV (21:38)
[2024-07-10 22:09] LABS: Anion Gap 14 (5-15); BUN 15 mg/dL (4-19); BUN/Creat Ratio 16.6 RATIO (10-20); Calcium 9.7 mg/dL (7.6-11.0); Carbon Dioxide 18.7 mmol/L (22.0-29.0); Chloride 108 mmol/L (96-108); Creatinine, Serum 0.9 mg/dL (0.6-1.0); EST Glomerular Filtration Rate 85 (>60); Estimated Creatinine Clearance 119.23 ml/min; Glucose 167 mg/dL (70-99); Sodium Level 141 mmol/L (133-145)
[2024-07-10 22:24] LABS: Lactic Acid 2.7 mmol/L (0.0-2.0)
[2024-07-10 22:24] LABS: Blood Gas Specimen Type VEN; O2 Delivery Device Room Air; SITE Not entered; VBG BASE EXCESS -2 mmol/L (-1.0-3.5); VBG Bicarbonate 24 mmol/L (22-26); VBG PO2 52 mmHg (25-40); VBG SO2 86 % (50-70); VBG TCO2 25 mmol/L (23-33); VBG pCO2 40.3 mmHg (41-51); VBG pH 7.37 (7.32-7.42)
--- NOTE | 2024-07-10 22:28 | CPS ---
[2201] Additional Duoneb given to pt. in ER. Lung garcia sound clear and diminished. Wheezing sounds like it's resonating from pt.'s upper airway.
== END 2024-07-10 23:49 | disposition home or self-care (01) ==
PROVIDERS: Physician Assistant; Emergency Provider Emergency Medicine; PCP Family Medicine; Visit Provider Emergency Medicine
DX: J45.901 Unspecified asthma with (acute) exacerbation (principal); B97.4 Respiratory syncytial virus as the cause of diseases classified elsewhere; F84.0 Autistic disorder
CPT/HCPCS: 94640; 71046; 80048; 82803; 83605; 85025; 93005; 96360; 99283; A4216